=== PATIENT | male | born 1960 | race Caucasian/White ===

== ENCOUNTER 2018-08-23 23:08 | Inpatient (IN) | payer OTHER ==
[~2018-08-23] VITALS: Ht 182.9 cm; Wt 250.0 kg
[2018-08-24] VITALS (10 sets, daily range): BP systolic 115–123; BP diastolic 56–77; PULSE 78–158; RESP 17–66; Ht 182.9 cm; Wt 250.0 kg
[2018-08-24] MEDS ORDERED: ONDANSETRON 4 MG INJ IV STA (01:25)
[2018-08-24] MEDS ORDERED: morphine 4 MG/ML VIAL IV STA (01:25)
[2018-08-24] MEDS ORDERED: SOD CHLORIDE 0.9% 1,000 ML IV SCH (01:48)
[2018-08-24] MEDS ORDERED: SOD CHLORIDE 0.9% 500 ML IV ONE (02:00)
[2018-08-24] MEDS ORDERED: DOCUSATE SODIUM 100 MG CAP PO PRN (02:00)
[2018-08-24] MEDS ORDERED: NACL 0.9% 3 ML SYG IV SCH (02:00)
[2018-08-24] MEDS ORDERED: BISACODYL (EC) 5 MG TAB PO PRN (02:00)
--- NOTE | 2018-08-24 03:53 | HP ---
Date/Time of Note Date/Time of Note DATE: 08/24/18 TIME: 03:53 Assessment/Plan VTE Prophylaxis SCD applied (from Nsg): Yes Pharmacological prophylaxis: NA/contraindicated Pharm contraindication: low risk/ambulating Lines/Catheters IV Catheter Type (from Nrsg): Saline Lock Urinary Cath still in place: No Assessment/Plan Hospital Course This is a 58-year-old male being admitted to the telemetry floor for: #1 hematuria: Possibly secondary to traumatic Shook removal in the setting of Eliquis use. Will hold Eliquis at the current time. Will monitor H&H. Will consult urology for further evaluation. We will get a renal ultrasound. Will check urine microscope, urinalysis #2 chronic bilateral lower extremity edema with possible cellulitis: Patient is currently afebrile and has a normal white blood cell count, will check an ESR level. Vancomycin IV per pharmacy at the current time. Wound care consult. Lasix 40 mg IV twice daily times 1 day for now. Will check venous Dopplers to rule out DVT. Monitor ESR level #3 atrial fibrillation: Relatively rate controlled, he does not know what his home medications are, start metoprolol 12.5 mg p.o. XL and titrate as indicated. hold Eliquis at the current time given his hematuria. #4 morbidly obese, will check hemoglobin A1c, lipid panel, TSH. #5 Normocytic anemia: Monitor H&H at the current time given hematuria . #6 thrombocytopenia: I have requested records from the transfer facility, this likely can be worked up as an outpatient. #7 suspected athlete's foot: Lotrimin twice daily #8 DVT GI prophylaxis: Holding chemical and mechanical prophylaxis the current time given bilateral lower extremity edema and hematuria, no GI prophylaxis indicated Further treatment strategy as per the clinical course. We will need to confirm with his SNF regarding his medical history as well as his medication list. [phone]. Result Diagram: 08/23/180 08/23/186 Results 24hrs Laboratory Tests Test 08/23/18 23:47 08/23/18 23:56 08/24/18 03:31 White Blood Count 5.2 Pending Red Blood Count 3.25 L Pending Hemoglobin 9.5 L Pending Hematocrit 30.1 L Pending Mean Corpuscular Volume 92.6 Pending Mean Corpuscular Hemoglobin 29.2 Pending Mean Corpuscular Hemoglobin Concent 31.6 L Pending Red Cell Distribution Width 17.5 H Pending Platelet Count 145 Pending Mean Platelet Volume 10.4 Pending Immature Granulocytes % 0.400 Neutrophils % 49.3 Lymphocytes % 26.1 Monocytes % 11.9 H Eosinophils % 11.5 H Basophils % 0.8 Nucleated Red Blood Cells % 0.0 Immature Granulocytes # 0.020 Neutrophils # 2.6 Lymphocytes # 1.4 Monocytes # 0.6 Eosinophils # 0.6 H Basophils # 0.0 Nucleated Red Blood Cells # 0.0 Erythrocyte Sedimentation Rate 47 H Prothrombin Time 14.9 Prothrombin Time Ratio 1.2 INR International Normalized Ratio 1.16 Activated Partial Thromboplast Time 36.9 H Sodium Level 140 Potassium Level 3.2 L Chloride Level 95 L Carbon Dioxide Level 36 H Anion Gap 9 Blood Urea Nitrogen 36 H Creatinine 1.61 H Est Glomerular Filtrat Rate mL/min 44 L Glucose Level 105 Calcium Level 9.4 Total Bilirubin 1.3 Direct Bilirubin 0.00 Indirect Bilirubin 1.3 H Aspartate Amino Transf (AST/SGOT) 32 Alanine Aminotransferase (ALT/SGPT) 40 Alkaline Phosphatase 175 H Troponin I 0.017 C-Reactive Protein 1.0 H Total Protein 7.2 Albumin 3.4 Globulin 3.80 H Albumin/Globulin Ratio 0.89 POC Venous Lactate 1.8 HPI/ROS Admit Date/Time Admit Date/Time Hx of Present Illness Chief complaint: Hematuria, bilateral lower extremity swelling Patient is a poor historian . This is a 58-year-old male with a past medical history of atrial fibrillation and hypertension who presents today from half-way facility complaining of hematuria. Patient states that he has been through multiple hospitals over the last 2 months. He was staying at a nursing facility and had a Shook catheter that was placed on July 16. At the sniff the nurse attempted to replace the Shook catheter as there was blood present in the urine. As the nurse took out the Shook catheter the patient started bleeding and he saturated a towel. He also has a history of bilateral lower extremity edema. He does not know all of his medical history but states that we can obtain it from the half-way facility. Patient denies any chest pain or shortness of breath. He states that he has had a history of lower extremity edema as well as abdominal edema. Allergies: NKDA Medications: Unknown ROS Const: As per HPI Eyes : No pain discharge or redness or change in visual acuity ENT: No pain, sore throat, congestion, congestion, dysphagia or discharge Respiratory: No shortness of breath, cough, sputum, wheezing, or pleuritic pain Cardiovascular: No chest pain, palpitation, PND, or edema GI : no change in appetite, abdominal pain, nausea, vomiting, diarrhea, constipation, or change in the color his stool Genitourinary: As per HPI Musculoskeletal: No joint pain, back pain, neck pain, restricted range of motion in neck or joints Skin: As per HPI Neuro: No headache, dizziness, syncope, seizure, focal weakness Endocrine: No polyuria, polydipsia, temperature intolerance Psych: No hallucination, depression, anxiety or suicidal ideation PMH/Family/Social Past Medical History Hypertension, A. fib, further history unable to obtain Medications Current Medications Sodium Chloride 1,000 ml @ 75 mls/hr [id number] IV ; Start 08/24/18 at 01:48 IV Flush (NS 3 ml) 3 ml PER PROTOCOL IV ; Start 08/24/18 at 02:00 Acetaminophen (Tylenol Tab) 650 mg Q6H PRN PO .PAIN 1-3 OR TEMP; Start 08/24/18 at 02:00 Docusate Sodium (Colace) 100 mg Q12H PRN PO .CONSTIPATION; Start 08/24/18 at 02:00 Bisacodyl (Dulcolax) 5 mg DAILY PRN PO .CONSTIPATION; Start 08/24/18 at 02:00 Heparin Sodium (Porcine) (Heparin (5000 Units/1ml)) 5,000 unit Q8 SC ; Start 08/24/18 at 06:00 Coded Allergies: No Known Allergy (Unverified , 08/24/18) Past Surgical History Unknown, Family History Significant Family History: no pertinent family hx Social History Alcohol Use: none Smoking Status: Never smoker Drug Use: none Exam/Review of Systems Vital Signs Vitals Vital Signs Date Temp Pulse Resp B/P (MAP) Pulse Ox O2 O2 Flow FiO2 Time Delivery Rate 08/24/18 108 18 96/57 (70) 95 Room Air 03:03 08/24/18 98.5 00:01 Exam Exam General: Patient is a morbidly obese male currently lying in bed in no acute distress HEENT: Atraumatic, normocephalic. The pupils are equal, round and reactive. Extraocular motor are intact Neck: Supple with full range of motion. No rigidity or meningismus Chest: Nontender Lungs: Clear to auscultation bilaterally no crackles rales or wheezing Heart: Irregularly irregular, rate controlled Abdomen: Morbidly obese, soft , nontender, nondistended , bowel sounds are present. No guarding no rebound tenderness , No masses or organomegaly. No costovertebral temporal angle mass Extremities: Bilateral lower extremity swelling with superficial wound, questionable cellulitis, onychomycosis, suspect athlete's foot Neurologic: Normal mental status, speech normal, cranial nerves II through XII are intact, motor and sensory are intact, Additional Comments PROCEDURE: XR Chest. CLINICAL INDICATION: Sepsis TECHNIQUE: Single frontal chest x-ray. COMPARISON: None. FINDINGS: The lungs are clear. No focal opacification is seen. The cardiomediastinal silhouette is moderately enlarged. There is aortic atherosclerosis. The osseous structures are unremarkable. IMPRESSION: 1. No acute infiltrates. 2. Moderate cardiomegaly. Aortic atherosclerosis. RPTAT: HHO .Marta Be MD, MD Date Time Electronically viewed and signed by .Marta Be MD, MD on 08/24/2018 00:59 .O/ CC: MASON CEJA [id number] AMY WREN Aug 24, 2018 03:53
[2018-08-24] MEDS ORDERED: HEPARIN 5,000 UNIT/1 ML VIAL SC SCH (06:00)
[2018-08-24] MEDS ORDERED: INSULIN ASPART [NOVOLOG] 3 ML PEN SC SCH (08:00)
[2018-08-24] MEDS ORDERED: VANCOMYCIN IV PER PHARMACY XX SCH (08:30)
[2018-08-24] MEDS ORDERED: POTASSIUM CHLORIDE (SR) 20 MEQ TAB PO SCH (09:00)
[2018-08-24] MEDS ORDERED: MAGNESIUM SULFATE 1 GM/D5W 100 ML IVPB ONE (09:00)
[2018-08-24] MEDS ORDERED: METOPROLOL (XL) 25 MG TAB PO SCH (09:00)
[2018-08-24] MEDS: ALBUMIN HUMAN 25% 100 ML IV SCH ×2 (10:34→14:42)
[2018-08-24] MEDS: FUROSEMIDE 40 MG INJ IV SCH ×2 (10:40→17:28)
[2018-08-24] MEDS: CLOTRIMAZOLE 1% 30 GM CR TOP SCH ×2 (10:40→20:25)
[2018-08-24] MEDS ORDERED: VANCOMYCIN HCL 2 GM in SOD CHLORIDE 0.9% 500 ML IVPB SCH (11:30)
[2018-08-24] MEDS ORDERED: CARV25TA79 PO (12:39)
[2018-08-24] MEDS ORDERED: NYST15CR28 TOP (12:47)
[2018-08-24] MEDS ORDERED: SAN30GM TOP (12:47)
[2018-08-24] MEDS ORDERED: FURO40TA4 PO (12:47)
[2018-08-24] MEDS ORDERED: METO5TAB65 PO (12:47)
[2018-08-24] MEDS ORDERED: CLON-379 PO (12:47)
[2018-08-24] MEDS ORDERED: PANT40TA4 PO (12:47)
[2018-08-24] MEDS ORDERED: POLY17PO28 PO (12:47)
[2018-08-24] MEDS ORDERED: ZNO30OI TOP (12:47)
[2018-08-24] MEDS ORDERED: SUCR1TAB56 PO (12:47)
[2018-08-24] MEDS ORDERED: RENAL (12:47)
[2018-08-24] MEDS ORDERED: ALBUMIN HUMAN 25% 100 ML ONE (14:38)
--- NOTE | 2018-08-24 14:42 | RADRPT ---
Echocardiogram Report Patient Name: STUART VALENTINPatient ID: [id number] : 1960 (58y 5m)Study Date: 08/24/2018 11:07:31 AM Gender: Padmajacession #: [id number] Tech: SN Location: Ref.Physician: AMY WREN Height(Cm): BSA: Weight(Kg): Quality: Technically Difficult StudyAccount #: Procedures: Echocardiographic Report: Transthoracic echocardiogram with complete 2D, M-Mode, and doppler examination. Indications: Bilateral lower extremity edema. Measurements: 2D/M Mode Doppler Measurement Value Normal Range Measurement Value Normal Range LVIDd 2D 5.8 [ 4.2 - 5.8 ] cm AV Peak Grupo 1.4 [ 100.0 - 170.0 ] cm/sec LVIDs 2D 4.9 [ 2.5 - 4.0 ] cm AV Peak PG 8.0 [ 2.0 - 9.0 ] mmHg LVPWd 2D 1.3 [ 0.6 - 1.0 ] cm LVOT Peak Grupo 0.7 [ 70.0 - 110.0 ] cm/sec IVSd 2D 1.3 [ 0.6 - 1.0 ] cm LVOT Peak PG 2.0 [ 2.0 - 6.0 ] mmHg AoR Diam 2D 3.1 [ 2.6 - 3.4 ] cm MV E Peak Grupo 0.7 [ 60.0 - 130.0 ] cm/sec EDV 2D 166.0 [ 62.0 - 150.0 ] ml MV A Peak Grupo 0.8 [ 100.0 - 120.0 ] cm/sec ESV 2D 111.0 [ 21.0 - 61.0 ] ml MV E/A 0.9 [ 0.8 - 1.5 ] ratio EF 2D 33.1 [ 52.0 - 72.0 ] percent MV Decel Time 106 [ 104 - 258 ] msec LA Dimen 2D 4.8 [ 3.0 - 4.0 ] cm Lat E` Grupo 0.1 [ 10.0 - 15.0 ] cm/sec Lateral E/E` 6.5 [ 1.0 - 2.0 ] ratio Med E` Grupo 0.1 cm/sec MV E/A 0.9 [ 0.8 - 1.5 ] ratio TR Peak Grupo 2.8 [ 100.0 - 280.0 ] cm/sec TR Peak PG 32.0 mmHg RVSP 42.0 [ 10.0 - 36.0 ] mmHg Findings: Left Ventricle: Left ventricle not well visualized. Mild concentric left ventricular hypertrophy. Mild enlargement of left ventricle cavity. Severe global left ventricular systolic dysfunction. Ejection fraction is visually estimated at 30 %. Tissue Doppler/Mitral Doppler indices are consistent with pseudonormalization with mildly elevated left atrial pressure (Stage II diastolic dysfunction). Right Ventricle: Normal right ventricular size. Normal right ventricular systolic function. Left Atrium: There is moderate enlargement of left atrium. Right Atrium: There is mild enlargement of right atrium. Mitral Valve: Mild mitral leaflet calcification. Mild mitral annular calcification. Trace mitral regurgitation. Aortic Valve: No significant aortic stenosis or insufficiency. Aortic cusps appear mildly calcified. Tricuspid Valve: Normal appearance of the tricuspid valve. Estimated peak PA systolic pressure 42 mmHg. There is moderate tricuspid regurgitation. Pericardium: Normal pericardium with no significant pericardial effusion. Aorta: Normal aortic root. IVC: Normal size and normal respiratory collapse consistent with normal right atrial pressure. Conclusions: Left ventricle not well visualized. Mild concentric left ventricular hypertrophy. Mild enlargement of left ventricle cavity. Severe global left ventricular systolic dysfunction. Ejection fraction is visually estimated at 30 %. Tissue Doppler/Mitral Doppler indices are consistent with pseudonormalization with mildly elevated left atrial pressure (Stage II diastolic dysfunction). There is moderate enlargement of left atrium. There is mild enlargement of right atrium. Mild mitral leaflet calcification. Mild mitral annular calcification. Trace mitral regurgitation. No significant aortic stenosis or insufficiency. Aortic cusps appear mildly calcified. Normal appearance of the tricuspid valve. Estimated peak PA systolic pressure 42 mmHg. There is moderate tricuspid regurgitation. very suboptimal study. Electronically Signed By: Marquis Seth 2018-08-24 14:41:12 PDT
--- NOTE | 2018-08-24 16:28 | CONS ---
Assessment/Plan Assessment/Plan Hospital Course (Demo Recall) Proximal congestive heart failure chronic and stable secondary to systolic and probably diastolic heart failure Severe cardiomyopathy Atrial fibrillation Hypertension Morbid obesity Obstructive sleep apnea: Does not tolerate CPAP well Renal insufficiency Hematuria: Probably traumatic Recommendations: I will give a dose of digoxin now. Patient has been started on Toprol. We will increase it as tolerated SAL inhibitor to be initiated once renal function remains stable Eliquis is on hold now. To be started once okay from urological standpoint Thank you for his referral. We will continue to follow along with you LAURA TORIBIO MD [facility] Consultation Date/Type/Reason Admit Date/Time Date of Consultation: Aug 24, 2018 Type of Consult Cardiology Reason for Consultation . Congestive heart failure a-fibrillation Requesting Provider: AMY WREN Date/Time of Note DATE: 08/24/18 TIME: 16:22 Hx of Present Illness Interventional cardiology consultation note Chief complaint: Lower extremity edema hematuria Reason for consult: Congestive heart failure atrial fibrillation History of present illness: Thank you for this referral. History was obtained from the patient review of the old chart patient is a very poor historian discussion with staff and physician. This is a pleasant 58-year-old frequent Portuguese male with a past medical history of atrial fibrillation and hypertension who [facility] today from detention facility complaining of hematuria. Patient states that he has been through multiple hospitals over the last 2 months. He was staying at a nursing facility and had a Shook catheter that was placed on July 16. At the sniff the nurse attempted to replace the Shook catheter as there was blood present in the urine. As the nurse took out the Shook catheter the patient started bleeding and he saturated a towel. He also has a history of bilateral lower extremity edema. He does not know all of his medical history but states that we can obtain it from the detention facility. Patient denies any chest pain or shortness of breath. He states that he has had a history of lower extremity edema as well as abdominal edema. Patient has morbid obesity and is set at some point his weight was 695 pounds Allergies: No known drug allergies Medications were reviewed as per medical reconciliation sheet which include Coreg 25 p.o. twice daily clonidine every 6 hours 0.1 Lasix 60 mg twice daily m etolazone 5 mg daily Protonix polyethylene glycol sucralfate 1 g p.o. every 6 hours Family history: No history of early coronary artery disease Social history: Patient does not smoke or drink Past medical history: Patient review of the old chart history of morbid obesity obstructive sleep apnea but does not tolerate CPAP hypertension atrial fibrillation. Patient is not aware of any history of cardiomyopathy but ejection fraction now is about 30-35% chronic lower extremity edema Review of system: Patient is mostly bedbound Patient denies all others except for above-mentioned Past Medical History Home Meds Reported Medications Collagenase* (Santyl*) 30 Gm Oint..gm., 1 APPLIC TOP DAILY, #1 TUB 08/24/18 Zinc Oxide* (Zinc Oxide*) 20%-30GM Oint, 1 APPLIC TOP DAILY, TUB 08/24/18 Nystatin* (Nystatin*) 15 Gm Cr, 1 APPLIC TOP BID, #1 TUB 08/24/18 [Renal ] No Conflict Check 08/24/18 Sucralfate* (Carafate*) 1 Gm Tab, 1 GM PO Q6, TAB 08/24/18 Polyethylene Glycol* (Polyethylene Glycol*) 17 Gm Powd.pack, 17 GM PO DAILY, #30 PACKET 08/24/18 Pantoprazole* (Pantoprazole*) 40 Mg Tablet.dr, 40 MG PO BID, TAB 08/24/18 Metolazone* (Metolazone*) 5 Mg Tablet, 5 MG PO DAILY, TAB 08/24/18 Furosemide* (Furosemide*) 40 Mg Tablet, 40 MG PO BID, TAB 08/24/18 Clonidine Hcl* (Clonidine Hcl*) 0.1 Mg Tab, 0.1 MG PO Q6, TAB 08/24/18 Carvedilol* (Carvedilol*) 25 Mg Tablet, 25 MG PO Q12, #60 TAB 08/24/18 Medications Current Medications IV Flush (NS 3 ml) 3 ml PER PROTOCOL IV ; Start 08/24/18 at 02:00 Acetaminophen (Tylenol Tab) 650 mg Q6H PRN PO .PAIN 1-3 OR TEMP; Start 08/24/18 at 02:00 Docusate Sodium (Colace) 100 mg Q12H PRN PO .CONSTIPATION; Start 08/24/18 at 02:00 Bisacodyl (Dulcolax) 5 mg DAILY PRN PO .CONSTIPATION; Start 08/24/18 at 02:00 Diagnostic Test (Pha) (Accu-Chek) 1 ea 02 XX ; Start 08/25/18 at 02:00 Furosemide (Lasix) 40 mg BID DIURETICS IV Last administered on 08/24/18at 10:40; Admin Dose 40 MG; Start 08/24/18 at 08:30; Stop 08/25/18 at 08:29 Vancomycin HCl (Vanco Iv Per Pharmacy) VANCOMYCIN PER PHARMACY PER PROTOCOL XX ; Start 08/24/18 at 08:30 Clotrimazole (Lotrimin Cr) 1 applic BID TOP Last administered on 08/24/18at 10:40; Admin Dose 1 APPLIC; Start 08/24/18 at 09:00 Metoprolol Succinate (Toprol Xl) 12.5 mg DAILY PO Last administered on 08/24/18at 10:27; Admin Dose 12.5 MG; Start 08/24/18 at 09:00 Potassium Chloride (Klor-Con 20) 40 meq BID PO Last administered on 08/24/18at 10:28; Admin Dose 40 MEQ; Start 08/24/18 at 09:00; Stop 08/25/18 at 08:59 Influenza Virus Vaccine Quadrival (Fluzone) 0.5 ml ONCE ONCE IM* ; Start 08/25/18 at 11:30; Stop 08/25/18 at 11:31 Allergies: Coded Allergies: No Known Allergy (Unverified , 08/24/18) Social History Alcohol Use: none Smoking Status: Never smoker Drug Use: none Exam/Review of Systems Vital Signs Vitals Vital Signs Date Temp Pulse Resp B/P (MAP) Pulse Ox O2 O2 Flow FiO2 Time Delivery Rate 08/24/18 98.1 79 66 115/77 96 15:20 (90) 08/24/18 Room Air 08:07 Exam Exam General: Morbidly obese gentleman in no acute distress HEENT: NC/AT. pupils are equal. round. NECK: Unable to assess for JVD. no stridor. CV: Irregularly regular. systolic murmur; no gallop or rubs. PULM: no wheezing or rhonchi. GI: SOFT, NT, ND, no rebound or guarding Extremity: +B/L LE edema. no clubbing. neuro: awake and alert, OX3. Psych: calm and pleasant rectal: deferred EKG was personally showed atrial fibrillation Recording was personally reviewed which shows: Left ventricle not well visualized. Mild concentric left ventricular hypertrophy. Mild enlargement of left ventricle cavity. Severe global left ventricular systolic dysfunction. Ejection fraction is visually estimated at 30 %. Tissue Doppler/Mitral Doppler indices are consistent with pseudonormalization with mildly elevated left atrial pressure (Stage II diastolic dysfunction). There is moderate enlargement of left atrium. There is mild enlargement of right atrium. Mild mitral leaflet calcification. Mild mitral annular calcification. Trace mitral regurgitation. No significant aortic stenosis or insufficiency. Aortic cusps appear mildly calcified. Normal appearance of the tricuspid valve. Estimated peak PA systolic pressure 42 mmHg. There is moderate tricuspid regurgitation. Labs Result Diagram: 08/24/18 0331 08/24/18 0331 Results 24hrs Laboratory Tests Test 08/23/18 23:47 08/23/18 23:56 08/24/18 03:31 08/24/18 07:31 White Blood Count 5.2 5.6 Red Blood Count 3.25 L 3.25 L Hemoglobin 9.5 L 9.7 L Hematocrit 30.1 L 30.0 L Mean Corpuscular 92.6 92.3 Volume Mean Corpuscular 29.2 29.8 Hemoglobin Mean Corpuscular 31.6 L 32.3 Hemoglobin Concent Red Cell 17.5 H 17.6 H Distribution Width Platelet Count 145 145 Mean Platelet Volume 10.4 10.5 H Immature 0.400 0.500 H Granulocytes % Neutrophils % 49.3 54.8 Lymphocytes % 26.1 22.9 Monocytes % 11.9 H 9.6 Eosinophils % 11.5 H 11.5 H Basophils % 0.8 0.7 Nucleated Red Blood 0.0 0.0 Cells % Immature 0.020 0.030 Granulocytes # Neutrophils # 2.6 3.1 Lymphocytes # 1.4 1.3 Monocytes # 0.6 0.5 Eosinophils # 0.6 H 0.7 H Basophils # 0.0 0.0 Nucleated Red Blood 0.0 0.0 Cells # Erythrocyte 47 H Sedimentation Rate Prothrombin Time 14.9 Prothrombin Time 1.2 Ratio INR International 1.16 Normalized Ratio Activated 36.9 H Partial Thromboplast Time Sodium Level 140 141 Potassium Level 3.2 L 3.4 L Chloride Level 95 L 98 Carbon Dioxide Level 36 H 33 H Anion Gap 9 10 Blood Urea Nitrogen 36 H 35 H Creatinine 1.61 H 1.55 H Est Glomerular 44 L 46 L Filtrat Rate mL/min Glucose Level 105 104 Calcium Level 9.4 9.3 Total Bilirubin 1.3 1.4 H Direct Bilirubin 0.00 0.00 Indirect Bilirubin 1.3 H 1.4 H Aspartate Amino 32 30 Transf (AST/SGOT) Alanine 40 39 Aminotransferase (AL T/SGPT) Alkaline Phosphatase 175 H 179 H Troponin I 0.017 C-Reactive Protein 1.0 H Total Protein 7.2 7.0 Albumin 3.4 3.3 Globulin 3.80 H 3.70 H Albumin/Globulin 0.89 0.89 Ratio POC Venous Lactate 1.8 Hemoglobin A1c 5.7 Lactic Acid Level 1.3 Magnesium Level 1.9 Iron Level 54 Total Iron Binding 260 Capacity Percent Iron 21 L Saturation Ferritin 146.0 B-Type Natriuretic 4960 H Peptide Triglycerides Level 61 Cholesterol Level 83 L LDL Cholesterol, 48 Calculated HDL Cholesterol 23 L Cholesterol/HDL 3.6 Ratio Thyroid Stimulating 5.050 H Hormone (TSH) Bedside Glucose 89 Test 08/24/18 09:29 Lab Scanned Report LAB Medications Medications Current Medications IV Flush (NS 3 ml) 3 ml PER PROTOCOL IV ; Start 08/24/18 at 02:00 Acetaminophen (Tylenol Tab) 650 mg Q6H PRN PO .PAIN 1-3 OR TEMP; Start 08/24/18 at 02:00 Docusate Sodium (Colace) 100 mg Q12H PRN PO .CONSTIPATION; Start 08/24/18 at 02:00 Bisacodyl (Dulcolax) 5 mg DAILY PRN PO .CONSTIPATION; Start 08/24/18 at 02:00 Diagnostic Test (Pha) (Accu-Chek) XX ; Start 08/25/18 at 02:00 Furosemide (Lasix) 40 mg BID DIURETICS IV Last administered on 08/24/18at 10:40; Admin Dose 40 MG; Start 08/24/18 at 08:30; Stop 08/25/18 at 08:29 Vancomycin HCl (Vanco Iv Per Pharmacy) VANCOMYCIN PER PHARMACY PER PROTOCOL XX ; Start 08/24/18 at 08:30 Clotrimazole (Lotrimin Cr) 1 applic BID TOP Last administered on 08/24/18at 10:40; Admin Dose 1 APPLIC; Start 08/24/18 at 09:00 Metoprolol Succinate (Toprol Xl) 12.5 mg DAILY PO Last administered on 08/24/18at 10:27; Admin Dose 12.5 MG; Start 08/24/18 at 09:00 Potassium Chloride (Klor-Con 20) 40 meq BID PO Last administered on 08/24/18at 10:28; Admin Dose 40 MEQ; Start 08/24/18 at 09:00; Stop 08/25/18 at 08:59 Influenza Virus Vaccine Quadrival (Fluzone) 0.5 ml ONCE ONCE IM* ; Start 08/25/18 at 11:30; Stop 08/25/18 at 11:31 LAURA TORIBIO MD Aug 24, 2018 16:28
[2018-08-24] MEDS ORDERED: DIGOXIN 500 MCG INJ IV ONE (16:30)
[2018-08-24] MEDS: SPIRONOLACTONE 25 MG TAB PO SCH (17:29)
--- NOTE | 2018-08-24 17:47 | QN ---
Documentation Comment f/u note This is a 58-year-old male, morbidly obese who was sent from the SNF for evaluation of hematuria after they had tried to change his chronic indwelling rodriguez. He was diagnosed with renal failure July of this year and had to have a few sessions of hemodialysis . Since then he has had an indwelling Rodriguez. He used to live in a motor home and now resides in a SNF. He is also severely obese but tells me he's still ambulant. He is managed as follows: 1. 1 hematuria: -Possibly secondary to traumatic Rodriguez removal in the setting of Eliquis use. -Eliquis on hold per admitting MD, no further bleeding noted in urine . -renal USS reviewed, L kidney could not be visualized, but R kidney looked fine -await urology review and recommendations -plan to resume eliquis if ok with him and monitor for renewed bleeding 2. chronic bilateral lower extremity edema : -patient is being further diuresed with very good response -this may be related to #3 -no gross evidence of cellulitis at this time -LE dopplers negative for DVT 3. Chronic CHF -combination of systolic and diastolic -echo also showed Cardiomyopathy with EF of 30%, ?cause -Mild pulm HTN with peak Pa pressure 42 -Moderate tricuspid regurgitation -see #2 4. Chronic atrial fibrillation: -Relatively rate controlled on tele -cardio monitoring and will adjust meds -Eliquis remains on hold at the current time given his hematuria. 5. [place] on CKD has gone through short stint of HD a month ago -cr levels improving however with diuresis -serial labs, avoid nephrotoxins 6. Normocytic anemia: -likely acute (hematuria) on chronic (CKD) -Monitor H&H at the current time given hematuria . 8. Chronic urinary retention -?neurogenic bladder, defer to urology -patient came in with rodriguez and can possibly be dced with it if necessary 8. Severely morbidly obese - patient now resides in [facility] and can be maintained on calorie controlled diet -may benefit from PT eval and cardiac rehab to help with regular and safe exercising -a1c wnl, TSH mildly elevated, f/u free T4 9. Athlete's foot: Lotrimin twice daily Dispo: -continue diuresis -monitor renal function -await urology review and recommendations JHONATHAN CANNON Aug 24, 2018 17:33
[2018-08-24] MEDS ORDERED: FUROSEMIDE 40 MG INJ IV SCH (18:00)
--- NOTE | 2018-08-24 19:07 | CONS ---
Assessment/Plan Assessment/Plan Hospital Course (Demo Recall) 58-year-old male morbidly obese with a past medical history of atrial fibrillat ion and hypertension presented from senior living facility complaining of hematuria. Patient states that he has been through multiple hospitals over the last 2 months. He was staying at a senior living facility. He had a Shook catheter that was placed on July 16. At the SNF the nurse attempted to replace the Shook catheter . As the nurse took out the Shook catheter the patient started bleeding and he saturated a towel. He was therefore transferred to the emergency room where a new Shook catheter was inserted. A urological consultation was then requested. He did have a catheter and the urine in the bag was clear. I tried and did advance the catheter into the bladder and some urine started coming out and that urine was clear. I wanted to irrigate the catheter and make sure that it is inside the bladder. Then I tried to deflate the balloon and the balloon was deflated and had no fluid in it I pulled the catheter out and indeed it came out without any problem and no bleeding. The balloon was deflating by itself. I inflated outside of the patient with water and watch come down by itself. The patient states that prior to his recent illness he was able to urinate and he does walk to the bathroom to have bowel movements as well as to urinates. Therefore I decided not to insert a new catheter for him and give him the chance to urinate on his own. And at the present time there is no bleeding from his urethra Consultation Date/Type/Reason Admit Date/Time August 24, 2018 Date of Consultation: Aug 24, 2018 Type of Consult Urology Reason for Consultation Gross hematuria Requesting Provider: AMY WREN Date/Time of Note DATE: 08/24/18 TIME: 18:52 Hx of Present Illness 58-year-old male morbidly obese with a past medical history of atrial fibrillation and hypertension presented from senior living facility complaining of hematuria. Patient states that he has been through multiple hospitals over the last 2 months. He was staying at a senior living facility. He had a Shook catheter that was placed on July 16. At the SNF the nurse attempted to replace the Shook catheter . As the nurse took out the Shook catheter the patient started bleeding and he saturated a towel. He was therefore transferred to the emergency room where a new Shook catheter was inserted. A urological consultation was then requested. Constitutional: no complaints Eyes: no complaints ENT: no complaints Respiratory: No shortness of breath Cardiovascular: No chest pain Gastrointestinal: No pain, No nausea, No vomiting Genitourinary: hematuria Musculoskeletal: no complaints Skin: no complaints Neurologic: no complaints Endocrine: no complaints Lymphatic: no complaints Psychological: no complaints Past Medical History Medical History: GERD, hypertension Home Meds Reported Medications Collagenase* (Santyl*) 30 Gm Oint..gm., 1 APPLIC TOP DAILY, #1 TUB 08/24/18 Zinc Oxide* (Zinc Oxide*) 20%-30GM Oint, 1 APPLIC TOP DAILY, TUB 08/24/18 Nystatin* (Nystatin*) 15 Gm Cr, 1 APPLIC TOP BID, #1 TUB 08/24/18 [Renal ] No Conflict Check 08/24/18 Sucralfate* (Carafate*) 1 Gm Tab, 1 GM PO Q6, TAB 08/24/18 Polyethylene Glycol* (Polyethylene Glycol*) 17 Gm Powd.pack, 17 GM PO DAILY, #30 PACKET 08/24/18 Pantoprazole* (Pantoprazole*) 40 Mg Tablet.dr, 40 MG PO BID, TAB 08/24/18 Metolazone* (Metolazone*) 5 Mg Tablet, 5 MG PO DAILY, TAB 08/24/18 Furosemide* (Furosemide*) 40 Mg Tablet, 40 MG PO BID, TAB 08/24/18 Clonidine Hcl* (Clonidine Hcl*) 0.1 Mg Tab, 0.1 MG PO Q6, TAB 08/24/18 Carvedilol* (Carvedilol*) 25 Mg Tablet, 25 MG PO Q12, #60 TAB 08/24/18 Medications Current Medications IV Flush (NS 3 ml) 3 ml PER PROTOCOL IV ; Start 08/24/18 at 02:00 Acetaminophen (Tylenol Tab) 650 mg Q6H PRN PO .PAIN 1-3 OR TEMP; Start 08/24/18 at 02:00 Docusate Sodium (Colace) 100 mg Q12H PRN PO .CONSTIPATION; Start 08/24/18 at 02:00 Bisacodyl (Dulcolax) 5 mg DAILY PRN PO .CONSTIPATION; Start 08/24/18 at 02:00 Diagnostic Test (Pha) (Accu-Chek) XX ; Start 08/25/18 at 02:00 Furosemide (Lasix) 40 mg BID DIURETICS IV Last administered on 08/24/18at 17:28; Admin Dose 40 MG; Start 08/24/18 at 08:30; Stop 08/25/18 at 08:29 Clotrimazole (Lotrimin Cr) 1 applic BID TOP Last administered on 08/24/18at 10:40; Admin Dose 1 APPLIC; Start 08/24/18 at 09:00 Influenza Virus Vaccine Quadrival (Fluzone) 0.5 ml ONCE ONCE IM* ; Start 08/25/18 at 11:30; Stop 08/25/18 at 11:31 Metoprolol Succinate (Toprol Xl) 25 mg BID PO ; Start 08/24/18 at 21:00 Spironolactone (Aldactone) 25 mg DAILY PO Last administered on 08/24/18at 17:29; Admin Dose 25 MG; Start 08/24/18 at 16:30 Allergies: Coded Allergies: No Known Allergy (Unverified , 08/24/18) Past Surgical History Past Surgical Hx: no surgical history Social History Alcohol Use: none Smoking Status: Never smoker Drug Use: none Exam/Review of Systems Exam Vitals Vital Signs Date Temp Pulse Resp B/P (MAP) Pulse Ox O2 O2 Flow FiO2 Time Delivery Rate 08/24/18 105 16:00 08/24/18 98.1 66 115/77 96 15:20 (90) 08/24/18 Room Air 08:07 Constitutional: alert, oriented, other (He is a poor historian as he does not remember what senior living facility he was in...) Psych: no complaints Head: normocephalic Eyes: nl conjunctiva ENMT: nl external ears & nose Neck: supple Respiratory: No wheezing Cardiovascular: No jugular venous distention (JVD) Gastrointestinal: soft (Very large abdomen) Genitourinary - Male: other (Penis is buried in the pubic fat.) Musculoskeletal: other (Very large lower extremities. The patient weighs 250 kg) Extremities: edema; No calf tenderness Neurological: nl mental status Skin: nl turgor Results Result Diagram: 08/24/18 0331 08/24/18 0331 Results 24hrs Laboratory Tests Test 08/23/18 23:47 08/23/18 23:56 08/24/18 03:31 08/24/18 07:31 White Blood Count 5.2 5.6 Red Blood Count 3.25 L 3.25 L Hemoglobin 9.5 L 9.7 L Hematocrit 30.1 L 30.0 L Mean Corpuscular 92.6 92.3 Volume Mean Corpuscular 29.2 29.8 Hemoglobin Mean Corpuscular 31.6 L 32.3 Hemoglobin Concent Red Cell 17.5 H 17.6 H Distribution Width Platelet Count 145 145 Mean Platelet Volume 10.4 10.5 H Immature 0.400 0.500 H Granulocytes % Neutrophils % 49.3 54.8 Lymphocytes % 26.1 22.9 Monocytes % 11.9 H 9.6 Eosinophils % 11.5 H 11.5 H Basophils % 0.8 0.7 Nucleated Red Blood 0.0 0.0 Cells % Immature 0.020 0.030 Granulocytes # Neutrophils # 2.6 3.1 Lymphocytes # 1.4 1.3 Monocytes # 0.6 0.5 Eosinophils # 0.6 H 0.7 H Basophils # 0.0 0.0 Nucleated Red Blood 0.0 0.0 Cells # Erythrocyte 47 H Sedimentation Rate Prothrombin Time 14.9 Prothrombin Time 1.2 Ratio INR International 1.16 Normalized Ratio Activated 36.9 H Partial Thromboplast Time Sodium Level 140 141 Potassium Level 3.2 L 3.4 L Chloride Level 95 L 98 Carbon Dioxide Level 36 H 33 H Anion Gap 9 10 Blood Urea Nitrogen 36 H 35 H Creatinine 1.61 H 1.55 H Est Glomerular 44 L 46 L Filtrat Rate mL/min Glucose Level 105 104 Calcium Level 9.4 9.3 Total Bilirubin 1.3 1.4 H Direct Bilirubin 0.00 0.00 Indirect Bilirubin 1.3 H 1.4 H Aspartate Amino 32 30 Transf (AST/SGOT) Alanine 40 39 Aminotransferase (AL T/SGPT) Alkaline Phosphatase 175 H 179 H Troponin I 0.017 C-Reactive Protein 1.0 H Total Protein 7.2 7.0 Albumin 3.4 3.3 Globulin 3.80 H 3.70 H Albumin/Globulin 0.89 0.89 Ratio POC Venous Lactate 1.8 Hemoglobin A1c 5.7 Lactic Acid Level 1.3 Magnesium Level 1.9 Iron Level 54 Total Iron Binding 260 Capacity Percent Iron 21 L Saturation Ferritin 146.0 B-Type Natriuretic 4960 H Peptide Triglycerides Level 61 Cholesterol Level 83 L LDL Cholesterol, 48 Calculated HDL Cholesterol 23 L Cholesterol/HDL 3.6 Ratio Thyroid Stimulating 5.050 H Hormone (TSH) Bedside Glucose 89 Test 08/24/18 09:29 Lab Scanned Report LAB Imaging Imaging Renal ultrasound:. 1-The right kidney is unremarkable without evidence of hydronephrosis or mass. 2. The left kidney is not visualized secondary to patient positioning and the patient's large body habitus. 3. The bladder is decompressed with a Shook catheter. Medications Medication Current Medications IV Flush (NS 3 ml) 3 ml PER PROTOCOL IV ; Start 08/24/18 at 02:00 Acetaminophen (Tylenol Tab) 650 mg Q6H PRN PO .PAIN 1-3 OR TEMP; Start 08/24/18 at 02:00 Docusate Sodium (Colace) 100 mg Q12H PRN PO .CONSTIPATION; Start 08/24/18 at 02:00 Bisacodyl (Dulcolax) 5 mg DAILY PRN PO .CONSTIPATION; Start 08/24/18 at 02:00 Diagnostic Test (Pha) (Accu-Chek) XX ; Start 08/25/18 at 02:00 Furosemide (Lasix) 40 mg BID DIURETICS IV Last administered on 08/24/18at 17:28; Admin Dose 40 MG; Start 08/24/18 at 08:30; Stop 08/25/18 at 08:29 Clotrimazole (Lotrimin Cr) 1 applic BID TOP Last administered on 08/24/18at 10:40; Admin Dose 1 APPLIC; Start 08/24/18 at 09:00 Influenza Virus Vaccine Quadrival (Fluzone) 0.5 ml ONCE ONCE IM* ; Start 08/25/18 at 11:30; Stop 08/25/18 at 11:31 Metoprolol Succinate (Toprol Xl) 25 mg BID PO ; Start 08/24/18 at 21:00 Spironolactone (Aldactone) 25 mg DAILY PO Last administered on 08/24/18at 17:29; Admin Dose 25 MG; Start 08/24/18 at 16:30 FARHAD MESSINA MD Aug 24, 2018 19:02
[2018-08-24] MEDS: METOPROLOL (XL) 25 MG TAB PO SCH (20:25)
[2018-08-25] VITALS (12 sets, daily range): BP systolic 107–120; BP diastolic 56–71; PULSE 79–117; RESP 19
[2018-08-25] MEDS: ACCU-CHEK XX SCH (01:39)
[2018-08-25] MEDS: FUROSEMIDE 40 MG INJ IV SCH (06:11)
[2018-08-25] MEDS: METOPROLOL (XL) 25 MG TAB PO SCH ×2 (08:07→21:04)
[2018-08-25] MEDS: CLOTRIMAZOLE 1% 30 GM CR TOP SCH ×2 (08:07→21:06)
[2018-08-25] MEDS: SPIRONOLACTONE 25 MG TAB PO SCH (08:07)
--- NOTE | 2018-08-25 08:16 | CONS ---
Consult Date/Type/Reason Admit Date/Time Aug 24, 2018 at 01:44 Initial Consult Date 08/24/18 Type of Consultation: cv Requesting Provider: AMY WREN Date/Time of Note DATE: 08/25/18 TIME: 08:12 Subjective Interventional cardiology follow-up progress note Subjective: Case discussed with staff telemetry was reviewed. Patient remains in atrial fibrillation. Heart rate has been elevated Patient denies any left-sided chest pain or pressure to me Patient denies any palpitation to me. Denies PND orthopnea to me Objective: General: Morbidly obese gentleman in no acute distress HEENT: NC/AT. pupils are equal. round. NECK: Unable to assess for JVD. no stridor. CV: Irregularly regular. systolic murmur; no gallop or rubs. PULM: no wheezing or rhonchi. GI: SOFT, NT, ND, no rebound or guarding Extremity: +B/L LE edema. no clubbing. neuro: awake and alert, OX3. Psych: calm and pleasant rectal: deferred EKG was personally showed atrial fibrillation Echocardiogram was personally reviewed which shows: Left ventricle not well visualized. Mild concentric left ventricular hypertrophy. Mild enlargement of left ventricle cavity. Severe global left ventricular systolic dysfunction. Ejection fraction is visually estimated at 30 %. Tissue Doppler/Mitral Doppler indices are consistent with pseudonormalization with mildly elevated left atrial pressure (Stage II diastolic dysfunction). There is moderate enlargement of left atrium. There is mild enlargement of right atrium. Mild mitral leaflet calcification. Mild mitral annular calcification. Trace mitral regurgitation. No significant aortic stenosis or insufficiency. Aortic cusps appear mildly calcified. Normal appearance of the tricuspid valve. Estimated peak PA systolic pressure 42 mmHg. There is moderate tricuspid regurgitation. Objective Vitals Vital Signs Date Temp Pulse Resp B/P (MAP) Pulse Ox O2 O2 Flow FiO2 Time Delivery Rate 08/25/18 117 04:00 08/25/18 97.9 19 118/71 95 03:59 (87) 08/24/18 Room Air 08:07 Intake and Output 08/24/18 08/24/18 08/25/18 1515:00 23:00 07:00 IntakeIntake Total 1500 ml 700 ml OutputOutput Total 2400 ml 1200 ml BalanceBalance -900 ml -500 ml Results/Medications Result Diagram: 08/25/18 0507 08/25/18 0507 Results 24 hrs Laboratory Tests Test 08/24/18 09:29 08/25/18 05:06 08/25/18 05:07 Lab Scanned Report LAB Hemoglobin A1c 5.8 Magnesium Level 2.0 B-Type Natriuretic Peptide 5340 H Thyroid Stimulating Hormone (TSH) Pending Free Thyroxine 1.79 White Blood Count 4.6 L Red Blood Count 3.00 L Hemoglobin 8.9 L Hematocrit 27.6 L Mean Corpuscular Volume 92.0 Mean Corpuscular Hemoglobin 29.7 Mean Corpuscular Hemoglobin Concent 32.2 Red Cell Distribution Width 17.2 H Platelet Count 124 L Mean Platelet Volume 11.2 H Immature Granulocytes % 0.200 Neutrophils % 49.2 Lymphocytes % 25.5 Monocytes % 16.1 H Eosinophils % 8.3 H Basophils % 0.7 Nucleated Red Blood Cells % 0.0 Immature Granulocytes # 0.010 Neutrophils # 2.3 Lymphocytes # 1.2 Monocytes # 0.7 Eosinophils # 0.4 Basophils # 0.0 Nucleated Red Blood Cells # 0.0 Sodium Level 140 Potassium Level 4.2 Chloride Level 97 Carbon Dioxide Level 32 H Anion Gap 11 Blood Urea Nitrogen 35 H Creatinine 1.64 H Est Glomerular Filtrat Rate mL/min 43 L Glucose Level 95 Calcium Level 9.2 Total Bilirubin 1.8 H Direct Bilirubin 0.00 Indirect Bilirubin 1.8 H Aspartate Amino Transf (AST/SGOT) 27 Alanine Aminotransferase (ALT/SGPT) 35 Alkaline Phosphatase 130 H Total Protein 6.6 Albumin 3.3 Globulin 3.30 H Albumin/Globulin Ratio 1.00 Home Meds Reported Medications Collagenase* (Santyl*) 30 Gm Oint..gm., 1 APPLIC TOP DAILY, #1 TUB 08/24/18 Zinc Oxide* (Zinc Oxide*) 20%-30GM Oint, 1 APPLIC TOP DAILY, TUB 08/24/18 Nystatin* (Nystatin*) 15 Gm Cr, 1 APPLIC TOP BID, #1 TUB 08/24/18 [Renal ] No Conflict Check 08/24/18 Sucralfate* (Carafate*) 1 Gm Tab, 1 GM PO Q6, TAB 08/24/18 Polyethylene Glycol* (Polyethylene Glycol*) 17 Gm Powd.pack, 17 GM PO DAILY, #30 PACKET 08/24/18 Pantoprazole* (Pantoprazole*) 40 Mg Tablet.dr, 40 MG PO BID, TAB 08/24/18 Metolazone* (Metolazone*) 5 Mg Tablet, 5 MG PO DAILY, TAB 08/24/18 Furosemide* (Furosemide*) 40 Mg Tablet, 40 MG PO BID, TAB 08/24/18 Clonidine Hcl* (Clonidine Hcl*) 0.1 Mg Tab, 0.1 MG PO Q6, TAB 08/24/18 Carvedilol* (Carvedilol*) 25 Mg Tablet, 25 MG PO Q12, #60 TAB 08/24/18 Medications Current Medications IV Flush (NS 3 ml) 3 ml PER PROTOCOL IV ; Start 08/24/18 at 02:00 Acetaminophen (Tylenol Tab) 650 mg Q6H PRN PO .PAIN 1-3 OR TEMP; Start 08/24/18 at 02:00 Docusate Sodium (Colace) 100 mg Q12H PRN PO .CONSTIPATION; Start 08/24/18 at 02:00 Bisacodyl (Dulcolax) 5 mg DAILY PRN PO .CONSTIPATION; Start 08/24/18 at 02:00 Diagnostic Test (Pha) (Accu-Chek) 1 02 XX ; Start 08/25/18 at 02:00 Furosemide (Lasix) 40 mg BID DIURETICS IV Last administered on 08/25/18at 06:11; Admin Dose 40 MG; Start 08/24/18 at 08:30; Stop 08/25/18 at 08:29 Clotrimazole (Lotrimin Cr) 1 applic BID TOP Last administered on 08/25/18at 08:07; Admin Dose 1 APPLIC; Start 08/24/18 at 09:00 Influenza Virus Vaccine Quadrival (Fluzone) 0.5 ml ONCE ONCE IM* ; Start 08/25/18 at 11:30; Stop 08/25/18 at 11:31 Metoprolol Succinate (Toprol Xl) 25 mg BID PO Last administered on 08/25/18at 08:07; Admin Dose 25 MG; Start 08/24/18 at 21:00 Spironolactone (Aldactone) 25 mg DAILY PO Last administered on 08/25/18at 08:07; Admin Dose 25 MG; Start 08/24/18 at 16:30 Assessment/Plan Hospital Course (Demo Recall) congestive heart failure chronic and stable secondary to systolic and probably diastolic heart failure Severe cardiomyopathy Atrial fibrillation Hypertension Morbid obesity Obstructive sleep apnea: Does not tolerate CPAP well Renal insufficiency Hematuria: Probably traumatic Anemia Recommendations: I will give a dose of digoxin now to control the heart rate better. Increase Toprol as tolerated SAL inhibitor to be initiated once renal function remains stable Eliquis is on hold now. To be started once okay from urological standpoint Continue with Lasix and Aldactone to be adjusted daily as needed Thank you for his referral. We will continue to follow along with you LAURA TORIBIO MD [facility] LAURA TORIBIO MD Aug 25, 2018 08:15
[2018-08-25] MEDS ORDERED: DIGOXIN 500 MCG INJ IV ONE (08:30)
--- NOTE | 2018-08-25 17:47 | PN ---
Date/Time of Note Date/Time of Note DATE: 08/25/18 TIME: 08:38 Assessment/Plan VTE Prophylaxis Risk score (from Nsg)>0 risk: 2 Pharmacological prophylaxis: apixaban Lines/Catheters IV Catheter Type (from Nrsg): Saline Lock Urinary Cath still in place: No Assessment/Plan Hospital Course S: no new complaints, HR uncontrolled overnight O : Constitutional: alert, oriented,morbidly obese Head: atraumatic, normocephalic Neck: non-tender, supple Respiratory: clear to auscultation Cardiovascular: irregular rate with tachycardia Gastrointestinal: S/ NT / +BS Extremities: Matt LE edema up to knees assessment and plan: This is a 58-year-old male, morbidly obese who was sent from the SNF for evaluation of hematuria after they had tried to change his chronic indwelling rodriguez. He was diagnosed with renal failure July of this year and had to have a few sessions of hemodialysis . Since then he has had an indwelling Rodriguez. He used to live in a motor home and now resides in a SNF. He is also severely obese but tells me he's still ambulant. He is managed as follows: 1. 1 hematuria: resolved -Possibly secondary to traumatic Rodriguez removal in the setting of Eliquis use. -Eliquis on hold per admitting MD, no further bleeding noted in urine . -renal USS reviewed, L kidney could not be visualized, but R kidney looked fine -resume eliquis 2. chronic bilateral lower extremity edema : -patient is being further diuresed with very good response -this may be related to #3 -no gross evidence of cellulitis at this time -LE dopplers negative for DVT 3. Chronic CHF -combination of systolic and diastolic -echo also showed Cardiomyopathy with EF of 30%, ?cause -Mild pulm HTN with peak Pa pressure 42 -Moderate tricuspid regurgitation -see #2 4. Chronic atrial fibrillation: -rate increased overnight, new meds give per cardio -cardio monitoring and will adjust meds -resume Eliquis 5. cornell on CKD: resolved has gone through short stint of HD a month ago -cr levels holding steady with diuresis -serial labs, avoid nephrotoxins 6. Normocytic anemia: -likely acute (hematuria) on chronic (CKD) -Monitor H&H at the current time given hematuria . 8. Chronic urinary retention -?neurogenic bladder, -urology recs noted, rodriguez has been dced, nurses monitoring PVR -patient came in with rodriguez and can possibly be dced with it if necessary 8. Severely morbidly obese - patient now resides in long-term and can be maintained on calorie controlled diet -may benefit from PT eval and cardiac rehab to help with regular and safe exercising -a1c wnl, TSH mildly elevated, free T4 wnl 9. Athlete's foot: Lotrimin twice daily Dispo: -cardio had adjusted meds today, monitor to assess new control -also urology d.samir rodriguez yesterday, continue to monitor PVR for now to ensure no new recurrence of retention -also resume eliquis and observe to ensure no further bleeding -if all indices stable, plan for d/c in am. Result Diagram: 08/25/18 0507 08/25/18 0507 Results 24hrs Laboratory Tests Test 08/25/18 05:06 08/25/18 05:07 Hemoglobin A1c 5.8 Magnesium Level 2.0 B-Type Natriuretic Peptide 5340 H Thyroid Stimulating Hormone (TSH) 3.820 Free Thyroxine 1.79 White Blood Count 4.6 L Red Blood Count 3.00 L Hemoglobin 8.9 L Hematocrit 27.6 L Mean Corpuscular Volume 92.0 Mean Corpuscular Hemoglobin 29.7 Mean Corpuscular Hemoglobin Concent 32.2 Red Cell Distribution Width 17.2 H Platelet Count 124 L Mean Platelet Volume 11.2 H Immature Granulocytes % 0.200 Neutrophils % 49.2 Lymphocytes % 25.5 Monocytes % 16.1 H Eosinophils % 8.3 H Basophils % 0.7 Nucleated Red Blood Cells % 0.0 Immature Granulocytes # 0.010 Neutrophils # 2.3 Lymphocytes # 1.2 Monocytes # 0.7 Eosinophils # 0.4 Basophils # 0.0 Nucleated Red Blood Cells # 0.0 Sodium Level 140 Potassium Level 4.2 Chloride Level 97 Carbon Dioxide Level 32 H Anion Gap 11 Blood Urea Nitrogen 35 H Creatinine 1.64 H Est Glomerular Filtrat Rate mL/min 43 L Glucose Level 95 Calcium Level 9.2 Total Bilirubin 1.8 H Direct Bilirubin 0.00 Indirect Bilirubin 1.8 H Aspartate Amino Transf (AST/SGOT) 27 Alanine Aminotransferase (ALT/SGPT) 35 Alkaline Phosphatase 130 H Total Protein 6.6 Albumin 3.3 Globulin 3.30 H Albumin/Globulin Ratio 1.00 Exam/Review of Systems Exam Vitals Vital Signs Date Temp Pulse Resp B/P (MAP) Pulse Ox O2 O2 Flow FiO2 Time Delivery Rate 08/25/18 91 16:00 08/25/18 98.3 19 108/56 97 15:23 (73) 08/24/18 Room Air 08:07 Intake and Output 08/24/18 08/24/18 08/25/18 1515:00 23:00 07:00 IntakeIntake Total 1500 ml 700 ml OutputOutput Total 2400 ml 1200 ml BalanceBalance -900 ml -500 ml Results Results 24hrs Laboratory Tests Test 08/25/18 05:06 08/25/18 05:07 Hemoglobin A1c 5.8 Magnesium Level 2.0 B-Type Natriuretic Peptide 5340 H Thyroid Stimulating Hormone (TSH) 3.820 Free Thyroxine 1.79 White Blood Count 4.6 L Red Blood Count 3.00 L Hemoglobin 8.9 L Hematocrit 27.6 L Mean Corpuscular Volume 92.0 Mean Corpuscular Hemoglobin 29.7 Mean Corpuscular Hemoglobin Concent 32.2 Red Cell Distribution Width 17.2 H Platelet Count 124 L Mean Platelet Volume 11.2 H Immature Granulocytes % 0.200 Neutrophils % 49.2 Lymphocytes % 25.5 Monocytes % 16.1 H Eosinophils % 8.3 H Basophils % 0.7 Nucleated Red Blood Cells % 0.0 Immature Granulocytes # 0.010 Neutrophils # 2.3 Lymphocytes # 1.2 Monocytes # 0.7 Eosinophils # 0.4 Basophils # 0.0 Nucleated Red Blood Cells # 0.0 Sodium Level 140 Potassium Level 4.2 Chloride Level 97 Carbon Dioxide Level 32 H Anion Gap 11 Blood Urea Nitrogen 35 H Creatinine 1.64 H Est Glomerular Filtrat Rate mL/min 43 L Glucose Level 95 Calcium Level 9.2 Total Bilirubin 1.8 H Direct Bilirubin 0.00 Indirect Bilirubin 1.8 H Aspartate Amino Transf (AST/SGOT) 27 Alanine Aminotransferase (ALT/SGPT) 35 Alkaline Phosphatase 130 H Total Protein 6.6 Albumin 3.3 Globulin 3.30 H Albumin/Globulin Ratio 1.00 Medications Medication Current Medications IV Flush (NS 3 ml) 3 ml PER PROTOCOL IV ; Start 08/24/18 at 02:00 Acetaminophen (Tylenol Tab) 650 mg Q6H PRN PO .PAIN 1-3 OR TEMP; Start 08/24/18 at 02:00 Docusate Sodium (Colace) 100 mg Q12H PRN PO .CONSTIPATION; Start 08/24/18 at 02:00 Bisacodyl (Dulcolax) 5 mg DAILY PRN PO .CONSTIPATION; Start 08/24/18 at 02:00 Diagnostic Test (Pha) (Accu-Chek) 1 ea 02 XX ; Start 08/25/18 at 02:00 Clotrimazole (Lotrimin Cr) 1 applic BID TOP Last administered on 08/25/18at 08:07; Admin Dose 1 APPLIC; Start 08/24/18 at 09:00 Metoprolol Succinate (Toprol Xl) 25 mg BID PO Last administered on 08/25/18at 08:07; Admin Dose 25 MG; Start 08/24/18 at 21:00 Spironolactone (Aldactone) 25 mg DAILY PO Last administered on 08/25/18at 08:07; Admin Dose 25 MG; Start 08/24/18 at 16:30 JHONATHAN CANNON Aug 25, 2018 17:47
[2018-08-25] MEDS: SUCRALFATE 1 GM TAB PO SCH (18:17)
--- NOTE | 2018-08-25 19:50 | CONS ---
Consult Date/Type/Reason Admit Date/Time Aug 24, 2018 at 01:44 Initial Consult Date 08/24/18 Type of Consultation: Urology Reason for Consultation Gross hematuria Requesting Provider: AMY WREN Date/Time of Note DATE: 08/25/18 TIME: 19:46 Subjective Patient states that he has been voiding in the urinal and the last time he had some blood in the urine. Objective Vitals Vital Signs Date Temp Pulse Resp B/P (MAP) Pulse Ox O2 O2 Flow FiO2 Time Delivery Rate 08/25/18 91 16:00 08/25/18 98.3 108/56 97 15:23 (73) 08/24/18 Room Air 08:07 Intake and Output 08/24/18 08/24/18 08/25/18 1515:00 23:00 07:00 IntakeIntake Total 1500 ml 700 ml OutputOutput Total 2400 ml 1200 ml BalanceBalance -900 ml -500 ml Exam Patient has been voiding and his urine output has been about 1800 mL. Results/Medications Result Diagram: 08/25/18 0507 08/25/18 0507 Results 24 hrs Laboratory Tests Test 08/25/18 05:06 08/25/18 05:07 Hemoglobin A1c 5.8 Magnesium Level 2.0 B-Type Natriuretic Peptide 5340 H Thyroid Stimulating Hormone (TSH) 3.820 Free Thyroxine 1.79 White Blood Count 4.6 L Red Blood Count 3.00 L Hemoglobin 8.9 L Hematocrit 27.6 L Mean Corpuscular Volume 92.0 Mean Corpuscular Hemoglobin 29.7 Mean Corpuscular Hemoglobin Concent 32.2 Red Cell Distribution Width 17.2 H Platelet Count 124 L Mean Platelet Volume 11.2 H Immature Granulocytes % 0.200 Neutrophils % 49.2 Lymphocytes % 25.5 Monocytes % 16.1 H Eosinophils % 8.3 H Basophils % 0.7 Nucleated Red Blood Cells % 0.0 Immature Granulocytes # 0.010 Neutrophils # 2.3 Lymphocytes # 1.2 Monocytes # 0.7 Eosinophils # 0.4 Basophils # 0.0 Nucleated Red Blood Cells # 0.0 Sodium Level 140 Potassium Level 4.2 Chloride Level 97 Carbon Dioxide Level 32 H Anion Gap 11 Blood Urea Nitrogen 35 H Creatinine 1.64 H Est Glomerular Filtrat Rate mL/min 43 L Glucose Level 95 Calcium Level 9.2 Total Bilirubin 1.8 H Direct Bilirubin 0.00 Indirect Bilirubin 1.8 H Aspartate Amino Transf (AST/SGOT) 27 Alanine Aminotransferase (ALT/SGPT) 35 Alkaline Phosphatase 130 H Total Protein 6.6 Albumin 3.3 Globulin 3.30 H Albumin/Globulin Ratio 1.00 Home Meds Reported Medications Collagenase* (Santyl*) 30 Gm Oint..gm., 1 APPLIC TOP DAILY, #1 TUB 08/24/18 Zinc Oxide* (Zinc Oxide*) 20%-30GM Oint, 1 APPLIC TOP DAILY, TUB 08/24/18 Nystatin* (Nystatin*) 15 Gm Cr, 1 APPLIC TOP BID, #1 TUB 08/24/18 [Renal ] No Conflict Check 08/24/18 Sucralfate* (Carafate*) 1 Gm Tab, 1 GM PO Q6, TAB 08/24/18 Polyethylene Glycol* (Polyethylene Glycol*) 17 Gm Powd.pack, 17 GM PO DAILY, #30 PACKET 08/24/18 Pantoprazole* (Pantoprazole*) 40 Mg Tablet.dr, 40 MG PO BID, TAB 08/24/18 Metolazone* (Metolazone*) 5 Mg Tablet, 5 MG PO DAILY, TAB 08/24/18 Furosemide* (Furosemide*) 40 Mg Tablet, 40 MG PO BID, TAB 08/24/18 Clonidine Hcl* (Clonidine Hcl*) 0.1 Mg Tab, 0.1 MG PO Q6, TAB 08/24/18 Carvedilol* (Carvedilol*) 25 Mg Tablet, 25 MG PO Q12, #60 TAB 08/24/18 Medications Current Medications IV Flush (NS 3 ml) 3 ml PER PROTOCOL IV ; Start 08/24/18 at 02:00 Acetaminophen (Tylenol Tab) 650 mg Q6H PRN PO .PAIN 1-3 OR TEMP; Start 08/24/18 at 02:00 Docusate Sodium (Colace) 100 mg Q12H PRN PO .CONSTIPATION; Start 08/24/18 at 02:00 Bisacodyl (Dulcolax) 5 mg DAILY PRN PO .CONSTIPATION; Start 08/24/18 at 02:00 Diagnostic Test (Pha) (Accu-Chek) 1 XX ; Start 08/25/18 at 02:00 Clotrimazole (Lotrimin Cr) 1 applic BID TOP Last administered on 08/25/18at 08:07; Admin Dose 1 APPLIC; Start 08/24/18 at 09:00 Metoprolol Succinate (Toprol Xl) 25 mg BID PO Last administered on 08/25/18at 08:07; Admin Dose 25 MG; Start 08/24/18 at 21:00 Spironolactone (Aldactone) 25 mg DAILY PO Last administered on 08/25/18at 08:07; Admin Dose 25 MG; Start 08/24/18 at 16:30 Pantoprazole (Protonix Tab) 40 mg BID PO ; Start 08/25/18 at 21:00 Polyethylene Glycol (Miralax) 17 gm DAILY PO ; Start 08/26/18 at 09:00 Sucralfate (Carafate) 1 gm Q6 PO Last administered on 08/25/18at 18:17; Admin Dose 1 GM; Start 08/25/18 at 18:00 Apixaban (Eliquis) 2.5 mg BID PO ; Start 08/25/18 at 21:00 Furosemide (Lasix) 40 mg BID PO ; Start 08/25/18 at 21:00 Metolazone (Zaroxolyn) 5 mg DAILY PO ; Start 08/26/18 at 09:00 Assessment/Plan Hospital Course (Demo Recall) 58-year-old male morbidly obese with a past medical history of atrial fibrillation and hypertension presented from retirement facility complaining of hematuria. Patient states that he has been through multiple hospitals over the last 2 months. He was staying at a retirement facility. He had a Shook catheter that was placed on July 16. At the SNF the nurse attempted to replace the Shook catheter . As the nurse took out the Shook catheter the patient started bleeding and he saturated a towel. He was therefore transferred to the emergency room where a new Shook catheter was inserted. A urological consultation was then requested. He did have a catheter and the urine in the bag was clear. I tried and did advance the catheter into the bladder and some urine started coming out and that urine was clear. I wanted to irrigate the catheter and make sure that it is inside the bladder. Then I tried to deflate the balloon and the balloon was deflated and had no fluid in it I pulled the catheter out and indeed it came out without any problem and no bleeding. The balloon was deflating by itself. I inflated outside of the patient with water and watch come down by itself. Since the catheter was removed the patient has been able to urinate and he had a good urine output 1800ml. He did have some bleeding the last time he did urinate. He may continue to have the bleeding on and off until the urethra heals from the prior trauma that he sustained. FARHAD MESSINA MD Aug 25, 2018 19:50
[2018-08-25] MEDS: APIXABAN 5 MG TABLET PO SCH (21:04)
[2018-08-25] MEDS: PANTOPRAZOLE (EC) 40 MG TAB PO SCH (21:04)
[2018-08-25] MEDS: FUROSEMIDE 40 MG TAB PO SCH (21:05)
[2018-08-26] VITALS (12 sets, daily range): BP systolic 111–123; BP diastolic 56–72; PULSE 80–102; RESP 18–19
[2018-08-26] MEDS: SUCRALFATE 1 GM TAB PO SCH ×4 (00:21→18:49)
[2018-08-26] MEDS: ACCU-CHEK XX SCH (02:00)
[2018-08-26] MEDS: ACETAMINOPHEN 325 MG TAB PO PRN ×3 (02:09→20:29)
--- NOTE | 2018-08-26 08:56 | CONS ---
Consult Date/Type/Reason Admit Date/Time Aug 24, 2018 at 01:44 Initial Consult Date 08/24/18 Type of Consultation: cv Requesting Provider: AMY WREN Date/Time of Note DATE: 08/26/18 TIME: 08:53 Subjective Interventional cardiology follow-up progress note Subjective: Case discussed with staff telemetry was reviewed. Patient remains in atrial fibrillation. Heart rate has been under fair control Patient denies any left-sided chest pain or pressure to me Patient denies any palpitation to me. Denies PND orthopnea to me Objective: General: Morbidly obese gentleman in no acute distress HEENT: NC/AT. pupils are equal. round. NECK: Unable to assess for JVD. no stridor. CV: Irregularly regular. systolic murmur; no gallop or rubs. PULM: no wheezing or rhonchi. GI: SOFT, NT, ND, no rebound or guarding Extremity: +B/L LE edema. no clubbing. neuro: awake and alert, OX3. Psych: calm and pleasant rectal: deferred EKG was personally showed atrial fibrillation Echocardiogram was personally reviewed which shows: Left ventricle not well visualized. Mild concentric left ventricular hypertrophy. Mild enlargement of left ventricle cavity. Severe global left ventricular systolic dysfunction. Ejection fraction is visually estimated at 30 %. Tissue Doppler/Mitral Doppler indices are consistent with pseudonormalization with mildly elevated left atrial pressure (Stage II diastolic dysfunction). There is moderate enlargement of left atrium. There is mild enlargement of right atrium. Mild mitral leaflet calcification. Mild mitral annular calcification. Trace mitral regurgitation. No significant aortic stenosis or insufficiency. Aortic cusps appear mildly calcified. Normal appearance of the tricuspid valve. Estimated peak PA systolic pressure 42 mmHg. There is moderate tricuspid regurgitation. Objective Vitals Vital Signs Date Temp Pulse Resp B/P (MAP) Pulse Ox O2 O2 Flow FiO2 Time Delivery Rate 08/26/18 97.4 93 18 123/59 97 Room Air 07:12 (80) Intake and Output 08/25/18 08/25/18 08/26/18 1515:00 23:00 07:00 IntakeIntake Total 1000 ml 600 ml OutputOutput Total 1800 ml 1500 ml BalanceBalance -800 ml -900 ml Results/Medications Result Diagram: 08/26/1852908/26/18529 Results 24 hrs Laboratory Tests Test 08/26/18 05:30 White Blood Count 6.1 # Red Blood Count 3.01 L Hemoglobin 8.7 L Hematocrit 27.2 L Mean Corpuscular Volume 90.4 Mean Corpuscular Hemoglobin 28.9 L Mean Corpuscular Hemoglobin Concent 32.0 Red Cell Distribution Width 16.8 H Platelet Count 117 L Mean Platelet Volume 10.7 H Immature Granulocytes % 0.300 Neutrophils % 48.9 Lymphocytes % 22.8 Monocytes % 13.9 H Eosinophils % 13.4 H Basophils % 0.7 Nucleated Red Blood Cells % 0.0 Immature Granulocytes # 0.020 Neutrophils # 3.0 Lymphocytes # 1.4 Monocytes # 0.8 Eosinophils # 0.8 H Basophils # 0.0 Nucleated Red Blood Cells # 0.0 Sodium Level 139 Potassium Level 3.7 Chloride Level 97 Carbon Dioxide Level 31 Anion Gap 11 Blood Urea Nitrogen 36 H Creatinine 1.60 H Est Glomerular Filtrat Rate mL/min 44 L Glucose Level 93 Calcium Level 9.2 Total Bilirubin 1.5 H Direct Bilirubin 0.00 Indirect Bilirubin 1.5 H Aspartate Amino Transf (AST/SGOT) 26 Alanine Aminotransferase (ALT/SGPT) 38 Alkaline Phosphatase 143 H Total Protein 6.6 Albumin 3.3 Globulin 3.30 H Albumin/Globulin Ratio 1.00 Home Meds Reported Medications Collagenase* (Santyl*) 30 Gm Oint..gm., 1 APPLIC TOP DAILY, #1 TUB 08/24/18 Zinc Oxide* (Zinc Oxide*) 20%-30GM Oint, 1 APPLIC TOP DAILY, TUB 08/24/18 Nystatin* (Nystatin*) 15 Gm Cr, 1 APPLIC TOP BID, #1 TUB 08/24/18 [Renal ] No Conflict Check 08/24/18 Sucralfate* (Carafate*) 1 Gm Tab, 1 GM PO Q6, TAB 08/24/18 Polyethylene Glycol* (Polyethylene Glycol*) 17 Gm Powd.pack, 17 GM PO DAILY, #30 PACKET 08/24/18 Pantoprazole* (Pantoprazole*) 40 Mg Tablet.dr, 40 MG PO BID, TAB 08/24/18 Metolazone* (Metolazone*) 5 Mg Tablet, 5 MG PO DAILY, TAB 08/24/18 Furosemide* (Furosemide*) 40 Mg Tablet, 40 MG PO BID, TAB 08/24/18 Clonidine Hcl* (Clonidine Hcl*) 0.1 Mg Tab, 0.1 MG PO Q6, TAB 08/24/18 Carvedilol* (Carvedilol*) 25 Mg Tablet, 25 MG PO Q12, #60 TAB 08/24/18 Medications Current Medications IV Flush (NS 3 ml) 3 ml PER PROTOCOL IV ; Start 08/24/18 at 02:00 Acetaminophen (Tylenol Tab) 650 mg Q6H PRN PO .PAIN 1-3 OR TEMP Last admi nistered on 08/26/18at 02:09; Admin Dose 650 MG; Start 08/24/18 at 02:00 Docusate Sodium (Colace) 100 mg Q12H PRN PO .CONSTIPATION; Start 08/24/18 at 02:00 Bisacodyl (Dulcolax) 5 mg DAILY PRN PO .CONSTIPATION; Start 08/24/18 at 02:00 Diagnostic Test (Pha) (Accu-Chek) 1 ea 02 XX ; Start 08/25/18 at 02:00 Clotrimazole (Lotrimin Cr) 1 applic BID TOP Last administered on 08/25/18at 21:06; Admin Dose 1 APPLIC; Start 08/24/18 at 09:00 Metoprolol Succinate (Toprol Xl) 25 mg BID PO Last administered on 08/25/18 21:04; Admin Dose 25 MG; Start 08/24/18 at 21:00 Spironolactone (Aldactone) 25 mg DAILY PO Last administered on 08/25/18at 08:07; Admin Dose 25 MG; Start 08/24/18 at 16:30 Pantoprazole (Protonix Tab) 40 mg BID PO Last administered on 08/25/18at 21:04; Admin Dose 40 MG; Start 08/25/18 at 21:00 Polyethylene Glycol (Miralax) 17 gm DAILY PO ; Start 08/26/18 at 09:00 Sucralfate (Carafate) 1 gm Q6 PO Last administered on 08/26/18at 06:24; Admin Dose 1 GM; Start 08/25/18 at 18:00 Apixaban (Eliquis) 2.5 mg BID PO Last administered on 08/25/18 21:04; Admin Dose 2.5 MG; Start 08/25/18 at 21:00 Furosemide (Lasix) 40 mg BID PO Last administered on 08/25/18at 21:05; Admin Dose 40 MG; Start 08/25/18 at 21:00 Metolazone (Zaroxolyn) 5 mg DAILY PO ; Start 08/26/18 at 09:00 Assessment/Plan Hospital Course (Demo Recall) congestive heart failure chronic and stable secondary to systolic and probably diastolic heart failure Severe cardiomyopathy Atrial fibrillation Hypertension Morbid obesity Obstructive sleep apnea: Does not tolerate CPAP well Renal insufficiency Hematuria: Probably traumatic Anemia Recommendations: cont dig Increase Toprol as tolerated SAL inhibitor to be initiated once renal function remains stable Increase Eliquis to therapeutic dose of 5 mg p.o. twice daily if okay from urological standpoint Continue with Lasix and Aldactone to be adjusted daily as needed Thank you for his referral. We will continue to follow along with you LAURA TORIBIO MD [facility] LAURA TORIBIO MD Aug 26, 2018 08:55
[2018-08-26] MEDS ORDERED: POLYETHYLENE GLYCOL 17 GM PACKET PO SCH (09:00)
[2018-08-26] MEDS ORDERED: METOLAZONE 5 MG TAB PO SCH (09:00)
[2018-08-26] MEDS: CLOTRIMAZOLE 1% 30 GM CR TOP SCH ×2 (09:58→20:31)
[2018-08-26] MEDS: APIXABAN 5 MG TABLET PO SCH ×2 (10:00→20:30)
[2018-08-26] MEDS: PANTOPRAZOLE (EC) 40 MG TAB PO SCH ×2 (10:00→20:30)
[2018-08-26] MEDS: METOPROLOL (XL) 25 MG TAB PO SCH ×2 (10:00→20:30)
[2018-08-26] MEDS: SPIRONOLACTONE 25 MG TAB PO SCH (10:00)
[2018-08-26] MEDS: FUROSEMIDE 40 MG TAB PO SCH ×2 (10:00→20:31)
--- NOTE | 2018-08-26 13:11 | DS ---
DATE OF ADMISSION: 08/24/2018 DATE OF DISCHARGE: 08/26/2018 PRESENTING COMPLAINT: Hematuria. FINAL DIAGNOSES: 1. Acute hematuria, likely secondary to traumatic Shook removal/insertion in the setting of Eliquis use. -- Patient is status post urology review and evaluation. The patient has no further significant ble eding. Eliquis to be resumed. Continue monitoring outpatient and discontinue Eliquis if necessary. 2. Chronic bilateral lower extremity edema, likely related to #3. Patient with ongoing diuresis wit h good response. 3. Chronic congestive heart failure, systolic and diastolic, with mild pulmonary hypertension and mo derate tricuspid regurgitation on echo. 4. Chronic cardiomyopathy with ejection fraction of 30%. 5. Chronic atrial fibrillation with good rate control. 6. Chronic kidney disease. -- Patient did go through a short stint of hemodialysis in the past, but no further hemodialysis was recommended. 7. Chronic normocytic anemia with mild acute exacerbation based on recent hematuria: Indices stable . 8. Chronic urinary retention for which the source is on unknown, neurogenic bladder? -- Patient came in with Shook and will be discharged with Shook for continued follow up outpatient w [facility]. 9. Severely morbidly obese: Patient on calorie-controlled diet, patient recommended for PT and card iac rehab to help with regular and safe exercising. 10. Chronic athlete's foot on Lotrimin b.i.d. 11. Mild hyperbilirubinemia, indirect predominantly which could be secondary to mild hemolysis from recent hematuria. We will need continued outpatient monitoring and possible workup if persistent. 12. Possible obstructive sleep apnea versus obesity hypoventilation syndrome: Patient states he can not tolerate CPAP. CONSULTS ON THE CASE: Dr. Marquis Seth for cardiology, Dr. Rainer Rose for urology. SHORT HOSPITALIZATION COURSE: Full details are available in the chart for review. In summary, this is a very pleasant 58-year-old gentleman but unfortunately severely obese and also does not have a hi story of atrial fibrillation. He was on Eliquis therapy and also has a history of urinary retention and has a Shook catheter in chronically. Apparently, they had tried to change out his catheter at [facility] where he resides. The patient had developed hematuria from that and so they sent him to the ER to be evaluated. He was admitted for further workup for his hematuria. It was determined that the hematuria was likely secondary to trauma to the urethra from the Shook insertion and the pat ient on Eliquis therapy for atrial fibrillation. His Eliquis was held for a short stent and hematuri a actually resolved on its own without further intervention. Urology did see him and agreed with the treatment plan. He also assessed the patient in terms of a Shook catheter placement and ensure that there were no overt injuries that would require further intervention and this as likely assessment w as unremarkable. At this time, he has been resumed on Eliquis and has had no further bleeding. His first dose of Eliquis was given last night and this morning. We are still awaiting neurology clearan ce, but if cleared, [facility] We do still recommen d close monitoring and if the patient continues to have hematuria he may even be referred back to the ER. I will hold the Eliquis and notify the chiropractor sole practitioner to see if patient may have to be off of Marcia shoshana. In the interim, though, I feel like the patient does have chronic congestive heart failure. Dontae yoder was also found to have severe cardiomyopathy on echo with diastolic dysfunction and so his diurese take regimen was adjusted while in house with good response. He did have a lot of good urine output out and has been doing fairly well since. He will be discharged on this regimen and it is recommended that he continue close followup with card iology as well as nephrology to ensure that he continues to do well. This has all been reviewed with him in detail. Of note is that the patient was on Carafate therapy as well as twice daily PPI thera py, which may be suggested by a prior GI bleed, but at this time he has no melenic stools and n o concern for acute gastrointestinal bleeding at this time. He will be discharged on this regimen, h owever. For further information and clarification you can review the patient's chart. His comorbidi ties were also managed and monitored. At this time once we get urology clearance the patient to be d ischarged in stable condition. Again, we recommend monitoring of his liver function and renal functi on closely and have the further intervention per primary care doctor. DISCHARGE CONDITION: Stable. DIET: Recommended diet is low calorie about 2000 calorie, low-cholesterol, low-fat diet. ACTIVITY: Recommend outpatient cardiac rehabilitation and PT. FOLLOWUP: The patient will need close followup with PCP as well as cardiology, nephrology and urolog y. DISCHARGE MEDICATIONS: Please review the patient's chart. Time spent on discharge coordination was more than an hour. Dictated By: JHONATHAN CANNON MD BA/NTS Conf#: [id number] DID#: [id number]
== END 2018-08-26 23:05 | DRG 699 ==
LOC: E/R 23:08 → 6WM 08-24 01:44
PROVIDERS: ADMIT Family Medicine; ATTEND Family Medicine
DX: S37.39XA Other injury of urethra, initial encounter (principal); T83.83XA Hemorrhage due to genitourinary prosthetic devices, implants and grafts, initial encounter; Z68.45 Body mass index [BMI] 70 or greater, adult; I13.0 Hypertensive heart and chronic kidney disease with heart failure and stage 1 through stage 4 chronic kidney disease, or unspecified chronic kidney disease; I50.42 Chronic combined systolic (congestive) and diastolic (congestive) heart failure; N17.9 Acute kidney failure, unspecified; D69.6 Thrombocytopenia, unspecified; I48.2 Chronic atrial fibrillation; E66.01 Morbid (severe) obesity due to excess calories; B35.3 Tinea pedis; Y84.6 Urinary catheterization as the cause of abnormal reaction of the patient, or of later complication, without mention of misadventure at the time of the procedure; R31.9 Hematuria, unspecified; Y73.2 Prosthetic and other implants, materials and accessory gastroenterology and urology devices associated with adverse incidents; D64.9 Anemia, unspecified; G47.33 Obstructive sleep apnea (adult) (pediatric); N18.9 Chronic kidney disease, unspecified; R33.8 Other retention of urine; R60.0 Localized edema; Y92.128 Other place in nursing home as the place of occurrence of the external cause; Y93.89 Activity, other specified; Y99.8 Other external cause status; Z79.01 Long term (current) use of anticoagulants
CPT/HCPCS: 71045; 76775; 80053; 80061; 82306; 82728; 82962; 83036; 83540; 83605; 83735; 83880; 84439; 84443; 84484; 85025; 85610; 85651; 85730; 86140; 87040; 87081; 90686; 93005; 93306; 93970; 97116; 97162; 97530; J1644; J1940; J2270; J2405; J3370; J3475; J7030; J7040; P9047